=== PATIENT | male | born 2000 | race Caucasian/White ===

== ENCOUNTER 2025-05-22 16:01 | Outpatient (AMB) | payer OTHER, SELFPAY ==
--- NOTE | 2025-05-22 16:07 | A.OFFPC_ITS ---
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 Product Applications Scientist Required: No Accompanied by: Self / Same As Patient Allergies No Known Allergies Allergy (Verified 05/22/25 16:07) Tobacco use date assessed: 05/22/25 Dental Screening Dental Screen Date: 05/22/25 Did you have a dental visit in the last 12 months?: Yes Did you have a dental problem in the last 6 months where you did not have access to dental care?: No Was dental information given to patient?: Patient has dentist HPI HPI Comments History of Present Illness Details History of Present Illness The patient is a 25-year-old male presenting with a need for diabetes management and supplies. Diabetes Mellitus Type 1: - The patient has been managing Type 1 D iabetes Mellitus and requires G7s and Dexcom supplies for monitoring. - He uses an insulin pump and administer s 15 to 20 units of insulin at night, with a sliding scale during the day. - The patient has not had diabetes suppl ies for over a month due to a change in primary care providers. - He reports good control over his diabe kat for the past five to six years. Health Maintenance STI screen discussed patient refused Review of Systems - General: Denies smoking, rare alcohol consumption, denies drug use. - Endocrine: Reports good control of marian betes over the last five to six years. 10-point ROS reviewed and negative excep t as noted in HPI Past Medical History - Diabetes Mellitus Type 1, managed with insulin pump. Physical Exam General: Well-appearing, in no acute distress. Vital signs: Within normal limits. HEENT: Normocephalic, atraumatic. PERRLA, EOMI. Conjunctiva clear, sclera anicteric. Oropharynx clear, mucous membranes moist. TMs intact bilaterally. Neck: Supple, no lymphadenopathy, no thyromegaly, no JVD or carotid bruits. Cardiovascular: RRR, normal S1/S2, no murmurs, rubs, or gallops. Peripheral pulses 2+ and symmetric. No edema. Respiratory: Lungs clear to auscultation bilaterally, no wheezes, rales, or rhonchi. Normal effort. Abdomen: Soft, non-tender, non-distended. Normoactive bowel sounds. No hepatosplenomegaly, no masses. MSK: Full range of motion, no joint swelling or deformity. Normal gait. Skin: Warm, dry, intact. No rashes, lesions, or pallor. Neuro: Alert and oriented x3. Cranial nerves II-XII intact. Strength 5/5 throughout. Sensation intact. Reflexes 2+ symmetric. Normal coordination and gait. Psych: Appropriate mood and affect. Normal judgment and insight. Discussion Notes I discussed with the patient the need for baseline labs including CBC, CMP, lipid panel, TSH, and urine analysis. We also talked about the referral to an sheeter machine operator and the importance of maintaining diabetes supplies. The patient was informed about the STI screening and agreed to proceed. Follow-up was advised to review lab results and ensure continuity of care. Plan Diabetes type 1 - Order baseline labs including CBC, CMP , lipid panel, TSH, and urine analysis. - Provide a referral to an endocrinologi st for continued diabetes management. - Refill diabetes supplies including G7s and Dexcom. - Conduct STI screening as part of preve ntative care. Patient Instructions - Follow up with the sheeter machine operator as soon as possible for diabetes management. - Ensure diabetes supplies are refilled and available. - Complete the STI screening as discusse d. - Return for follow-up to discuss lab re sults and further management. [facility] Family History (Updated 05/22/25 @ 16:15 by Ladonna Hardin MA) Father Austin's like disease Mother No problems noted. Social History (Updated 05/22/25 @ 16:16 by Ladonna Hardin MA) Housing: Apartment Alcohol intake: current Alcohol intake frequency: holidays/special occasions only Patient Tobacco Use Status: Never used Tobacco service: No Current occupational status: employed Cognitive needs: No Hearing needs: No Vision needs: No Questionnaire PHQ-9 Over the last 2 weeks, how often have you been bothered by any of the following problems? 1. Little interest or pleasure in doing things: not at all 2. Feeling down, depressed, or hopeless: not at all 3. Trouble falling or staying asleep, or sleeping too much: not at all 4. Feeling tired or having little energy: several days 5. Poor appetite or overeating: several days 6. Feeling bad about yourself - or that you are a failure or have let yourself or your family down: not at all 7. Trouble concentrating on things, such as reading the newspaper or watching television: several days 8. Moving or speaking so slowly that other people could have noticed. Or the opposite - being so fidgety or restless that you have been moving around a lot more than usual: not at all 9. Thoughts that you would be better off or of hurting yourself in some way: not at all Total score: 3 Depression Screening Interpretation: Negative Depression Screening Done: Yes Source: Developed by Drs. Clarke Vela, Kathy Escobedo, Yoandy Juarez and colleagues, with an educational frederick from [employer]. Thrive Questionnaire Date Thrive assessed: 05/22/25 I am a: Patient What is your living situation today?: I have a steady place to live Within the past 12 months, did the food you bought not last and you didn't have the money to get more?: Never true Within the past 12 months, did you worry whether your food would run out before you got money to buy more?: Never true Do you have trouble paying for medicines?: Yes Do you have trouble getting transportation to medical appointments?: No Do you have trouble paying your heating and electricity bill?: Yes Do you have trouble taking care of your child, family member or friend?: No Are you currently unemployed and looking for a job?: No Are you interested in more education?: No Please select the resources that you would like help with: None Currently or been in a relationship where the following occur: No concerns reported THRIVE Score: 1 AUDIT C Alcohol Use Questionnaire (AUDIT-C) 1. How often do you have a drink containing alcohol?: 2-4 times a month 2. How many drinks containing alcohol do you have on a typical day when you are drinking?: 5 or 6 3. How often do you have six or more drinks on one occasion?: Less than monthly Total Score: 5 ZACHARY-7 AMB Questionnaire ZACHARY-7 Date ZACHARY - 7 assessed: 05/22/25 Feeling nervous, anxious, or on edge: 1 = Several days Not being able to stop or control worryin = Not at all Worrying too much about different things: 1 = Several days Trouble relaxin = Several days Being so restless that it is hard to sit still: 0 = Not at all Becoming easily annoyed or irritable: 0 = Not at all Feeling afraid as if something awful might happen: 0 = Not at all Total ZACHARY-7 score (0-4 normal; 5-9 mild; 10-14 moderate; 15-21 severe): 3 Source: Developed by Drs. Clarke Vela, Kathy Escobedo, Yoandy Juarez and colleagues, with an educational frederick from [employer]. Physical exam (Primary Care) Vital Signs: Last Vital Signs Temp 98 F 05/22/25 16:16 Pulse 89 05/22/25 16:16 Resp 16 05/22/25 16:16 BP 120/80 05/22/25 16:16 Pulse Ox 97 05/22/25 16:16 Oxygen Delivery Method Room Air 05/22/25 16:16 BMI result Body Mass Index 22.5 Tobacco/Smoking Status: Tobacco use Status Tobacco use date assessed 05/22/25 05/22/25 16:10 Patient Tobacco Use Status Never used Tobacco 05/22/25 16:16 PHQ-9: PHQ-9 Score PHQ-9: Total score 3 05/22/25 16:10 Depression Screening Interpretation: Negative Thrive Assessment: Date of Thrive Assessment Date Thrive assessed 05/22/25 05/22/25 16:10 Currently or been in a relationship where the following occur: No concerns reported Coding Level of Care Code New Pt Level 3 (48165) Diagnoses Establishing care with new doctor, encounter for Z76.89 Encounter for screening, unspecified Z13.9 Hypertension screen Z13.6 Screening for lipoid disorders Z13.220 Screening for depression Z13.31 Type 1 diabetes mellitus without complication, with terminal worker current use of insulin pump E10.9; Z96.41 Screening declined by patient Z53.20 Assessment & Plan Assessment & Plan (1) Establishing care with new doctor, encounter for: Code(s): Z76.89 - Persons encountering health services in other specified circumstances (2) Encounter for screening, unspecified: Code(s): Z13.9 - Encounter for screening, unspecified (3) Hypertension screen: Code(s): Z13.6 - Encounter for screening for cardiovascular disorders (4) Screening for lipoid disorders: Code(s): Z13.220 - Encounter for screening for lipoid disorders (5) Screening for depression: Code(s): Z13.31 - Encounter for screening for depression (6) Type 1 diabetes mellitus without complication, with correction current use of insulin pump: Code(s): E10.9 - Type 1 diabetes mellitus without complications; Z96.41 - Presence of insulin pump (external) (internal) (7) Screening declined by patient: Code(s): Z53.20 - Procedure and treatment not carried out because of patient's decision for unspecified reasons Plan Orders: Orders Complete Blood Count Auto Diff Today Z13.9 - Encounter for screening, unspecified, Z76.89 - Persons encountering health services in other specified circumstances Hemoglobin A1c Today Z13.9 - Encounter for screening, unspecified, Z76.89 - Persons encountering health services in other specified circumstances Hepatitis B Surface Antibody Today Z13.9 - Encounter for screening, unspecified, Z76.89 - Persons encountering health services in other specified circumstances Lipid Panel Today Z13.9 - Encounter for screening, unspecified, Z76.89 - Persons encountering health services in other specified circumstances Magnesium Today Z13.9 - Encounter for screening, unspecified, Z76.89 - Persons encountering health services in other specified circumstances Vitamin D 1,25 dihydroxy Today Z13.9 - Encounter for screening, unspecified, Z76.89 - Persons encountering health services in other specified circumstances UA CC w/rflx Micro + Cult Today Z13.9 - Encounter for screening, unspecified, Z76.89 - Persons encountering health services in other specified circumstances Comprehensive Met. Panel Today Z13.9 - Encounter for screening, unspecified, Z76.89 - Persons encountering health services in other specified circumstances Hepatitis B Surface Antigen Today Z13.9 - Encounter for screening, unspecified, Z76.89 - Persons encountering health services in other specified circumstances Hepatitis C Antibody Today Z13.9 - Encounter for screening, unspecified, Z76.89 - Persons encountering health services in other specified circumstances HIV Ab/Ag Today Z13.9 - Encounter for screening, unspecified, Z76.89 - Persons encountering health services in other specified circumstances Uric Acid Today Z13.9 - Encounter for screening, unspecified, Z76.89 - Persons encountering health services in other specified circumstances Vitamin B12 and Folate Today Z13.9 - Encounter for screening, unspecified, Z76.89 - Persons encountering health services in other specified circumstances TSH reflex Free T4 Today Z13.9 - Encounter for screening, unspecified, Z76.89 - Persons encountering health services in other specified circumstances Microalbumin, Random (w Creat) Today Z13.9 - Encounter for screening, unspecified, Z76.89 - Persons encountering health services in other specified circumstances Referrals Endocrinology Referral E10.8 - Type 1 diabetes mellitus with unspecified complications, E10.9 - Type 1 diabetes mellitus without complications, Z13.9 - Encounter for screening, unspecified, Z76.89 - Persons encountering health services in other specified circumstances, Z96.41 - Presence of insulin pump (external) (internal)
[2025-05-22 16:16] VITALS: BP 120/80; PULSE 89; RESP 16; TEMP 36.6; O2SAT 97; BMI 22.5
--- OUTSIDE RECORDS SUMMARY | 2025-05-22 17:09 | XMS_ITS | Clinical Summary ---
Author Organization [facility] Address [address] [place] [id number] Phone Care Team Providers Care Eligibility Specialist Name Role Phone Unavailable Primary Care Provider Unavailabl e Allergies Active Allergy Reactions Criticality Noted Date Comments Environmental 07/09/2018 Ragweed Medications HUMALOG 100 UNIT/ML injection 8 Active BASAGLAR KWIKPEN 100 UNIT/ML solution pen-injector INJECT UP TO A MAX OF 20 UNITS PER DAY FOR PUMP FAILURE 5 9 Active cetirizine 10 MG tabletIndicatio ns:Allergic rhinitis Take 1 tab po daily 100 tablet 9 Active fluticasone 50 MCG/ACT nasal sprayIndication s:Allergic rhinitis Administer 1 spray into each nostril daily. 1 Units 2 9 Active sucralfate 1 g tablet TAKE 1 TABLET BY MOUTH THREE TIMES DAILY BEFORE MEALS AND AT BEDTIME 1 Active famotidine 20 MG tablet Take 20 mg by mouth once daily. 1 Active Tresiba FlexTouch 100 UNIT/ML solution pen-injector 2 Active Insulin Lispro 100 UNIT/ML solution 2 Active Nirmatrelvir & Ritonavir (Paxlovid) 20 x 150 MG & 10 x 100MG tablet therapy packIndications :SARS-CoV-2 positive Nirmatrelvir 300 mg with ritonavir 100 mg, administered together by mouth, twice daily for 5 days. 1 each 2 Active Insulin Syringe-Needle U-100 (B-D INSULIN SYRINGE 1CC/25G) 25G X 5/8 1 ML misc 0.5 ML 8MMX3 31G X 5/16 2 Active BD Pen Needle Neris U/F 32G X 4 MM misc 3 Active FREESTYLE LITE test strip 3 Active Dexcom G6 Transmitter misc 3 Active Dexcom G6 Sensor misc 3 Active B-D SINGLE USE SWABS REGULAR pads 3 Active freestyle lancets 2 Active Active Problems Problem Noted Date Diagnosed Date Sebaceous cyst 01/06/2023 Assessment & Plan (01/06/2023 10:55 AM EDT): Normal growth, small pea sized Color blindness 01/06/2023 Assessment & Plan (01/06/2023 11:07 AM EDT): I have shown him a color blindness test, he got 50% right, but inconsistent. Suggest go to eye doctor for exam, also for possible glasses. Autoimmune thyroiditis 12/30/2022 Refused influenza vaccine 11/02/2020 Overview (11/02/2020): 11/02/2020 By patient Otisf toe 07/12/2019 Assessment & Plan (12/16/2021 2:42 PM EDT): Given handout on this. Assessment & Plan (07/12/2019 10:43 AM EST): Persistent left great toe irritation particularly with extension of toe. Previously x-rayed and no fracture noted. This irritation settled with rest for a week previously but has come back up. He has had it taped regularly without much help. Plan to rest this for a week with icing it daily. Continue to tape as needed. Type I diabetes mellitus 07/07/2017 Overview (09/18/2020): Type I diabetes (250.01) Onset: 07/07/2017 Added by: Ashok Kulkarni Followed by [facility]. 07/2018 A1c 10.1. 08/2018 A1c 10.1. 10/2018 A1c 10.2. Insulin pump basal and bolus. CGM intermittent use. Not testing regularly. 10/30/2019 - A1c 9.1%. Insulin pump. Looking at dexcom and Tandem pump. 03/18/2020 - Frances Johnson MD. A1c 9.6%. Try to bolus for all foods. Follow up in 2 months. 09/03/2020 - Frances Johnson MD. A1c 9.6%. Tandem pump set up. Dexcom. Assessment & Plan (12/16/2021 2:53 PM EDT): Patient reports last A1c in the 7-8% range. This is better than previously. Patient has been taking ownership of his diabetes management and caring for his body. Assessment & Plan (09/18/2020 1:11 PM EST): DOS: 09/03/2020 Provider: Frances Johnson MD Dx: T1DM HbA1C 9.6% February 2020 -Setup Tandem Pump training with the [employer] systems trainer --Help set u Dexcom Sensor G6 sensor --If possible will get new Tandem Pump as this has to be charged q 3 hours --Will upgrade to JAZIO technology one pump setup -f/u in 2 months Assessment & Plan (03/30/2020 9:31 AM EDT): DOS: 03/18/2020 Provider: Frances Johnson MD Dx: T1DM HbA1C 9.6% -Continue same insulin regimen -Check BG 3x daily and bolus until dexcom sensor is available -try to bolus for all foods -f/u in 2 months Assessment & Plan (11/21/2018 12:33 PM EDT): Regular blood sugars reported. No concern for high ketones currently. Assessment & Plan (07/09/2018 10:16 AM EST): Last A1c 10.8. Struggling with checking blood sugars and staying on top of giving insulin. Resolved Problems Problem Noted Date Diagnosed Date Resolved Date Abdominal pain 12/30/2022 01/06/2023 Weight loss 12/30/2022 01/06/2023 Hearing difficulty of left ear 02/22/2022 01/06/2023 Assessment & Plan (02/22/2022 6:48 AM EDT): Cerumen removed from ear canal without much effect on hearing. Most likely congestion related pressure on the TM and muffling of hearing. Continue with cetirizine and flonase. Discussed neti pot use. Epigastric pain 12/01/2021 01/06/2023 Assessment & Plan (12/16/2021 2:43 PM EDT): Pain has improved with use of famotidine, omeprazole and sucralfate. Continue with these for a few weeks and then transition off of this. Assessment & Plan (12/01/2021 8:43 PM EDT): History and physical concerning for recurrent reflux issues. The vomiting and diarrhea very recently would be consistent with a viral GI illness that we have seen in the clinic. The longer history of GI distress is concerning and so will obtain lab work to screen for inflammatory bowel diseases as well as for gallbladder or pancreatic dysfunction (other than diabetes). If these are normal discussed use of famotidine, omeprazole and sucralfate as he has previously used for the next week. Considering GI referral pending lab results. Refused influenza vaccine 07/12/2019 Assessment & Plan (07/12/2019 10:44 AM EST): Reviewed importance of vaccination and risks of disease. Parent/patient declined vaccine. Strain of back 11/21/2018 11/02/2020 Assessment & Plan (07/12/2019 10:41 AM EST): Exam and history consistent with back strain. Recommending stretching and strengthening exercises daily for two weeks. If persistent would refer to PT. Assessment & Plan (11/21/2018 11:39 PM EDT): James states that mid-back pain has been going on for about a year. There was no specific injury when this started up. No bony tenderness to suggest a bone problem. Localized to paraspinal muscle group. Discussed use of stretching and strengthening exercises. If this does not improve with these things then will refer to physical therapy. Concussion with brief loss of consciousness 06/04/2018 07/09/2018 Scoliosis (and kyphoscoliosis), idiopathic 11/07/2017 12/16/2021 Overview (12/30/2022): Scoliosis (737.30) Onset: 11/07/2017 Added by: King Pascal Diagnosis load December 2022 Assessment & Plan (07/09/2018 10:16 AM EST): Mild scoliosis on exam in lumbar area. Adjustment disorder with mix ed anxiety and depressed mood 07/07/2011 01/06/2023 Immunizations Immunization Administration Dates Next Due DTaP / HiB 12/08/2003 DTaP 5 05/25/2007, 3,2002, 002 HPV Vaccine 9 Valent 05/20/2019,01/09/2019,07/09 Hep A, ped/adol 01/09/2019,07/09/2018 Hep B, ped/adol 09/25/2003,2002,2002 Hib (PRP-T) 2002,2002,2002 IPV 05/25/2007, 4,2002, 002 MMR 05/08/2003 MMRV 05/25/2007 Meningococcal Conj (Menactra) MCV4P 07/09/2018,1 10/21/2012 Pneumococcal Conjugate 09/25/2003,2002,2002, 002 Tdap 08/20/2013 Varicella 05/08/2003 Family History Medical History Relation Name Comments No Known Problems Brother Julien No Known Problems Father ashok No Known Problems Mother yenni Relation Name Status Comments Brother Julien Alive Father ashok Alive Mother yenni Alive Social History Tobacco Use Types Packs/Day Years Used Date Smoking Tobacco: Never Smokeless Tobacco: Never Comments:Never Smoker Alcohol Use Standard Drinks/Week Comments No 0 (1 standard drink = 0.6 oz pur e alcohol) Hunger/Food Answer Date Recorded In the last 12 months, did y ou or your family ever eat less than you felt you should because there wasn't enough money for food? No 01/06/2023 Stable Housing Answer Date Recorded Are you worried that in the next 2 months you may not have stable housing? No 01/06/2023 Transportation Concerns Answer Date Rec orded In the last 12 months, have you or your family ever had to go without healthcare because you didn't have a way to get there? No 01/06/2023 Hazards in Home Answer Date Recorded Think about the place you li ve. Do you have problems with any of the following? Pests (mice or roaches), mold, no/not working smoke detectors, water leaks, no window guards. No 2022 Financing Utilities Answer Date Recorde d In the last 12 months, has t he electric, gas, oil, or water company threatened to shut off your services in your home? No 01/06/2023 Safety at Home Answer Date Recorded Are you or your family worried about feeling saf e in your home? No 01/06/2023 Outside Support Answer Date Recorded Do you feel that you need mo re support from other people or programs to help you care for yourself or your family? No 01/06/2023 Understanding Health Concerns Answer Da te Recorded Do you need help understandi ng your or your child's healthcare needs (diagnosis, medications, plan, etc.)? No 01/06/2023 Financing Health Concerns Answer Date R ecorded In the last 12 months, was t here a time when your child needed to see a doctor or get medications or supplies but could not because of cost? No 01/06/2023 Missing School or Work Answer Date Mat rded Did you or your child miss s chool or work because of a health problem that could have been avoided? No 01/06/2023 Sex and Gender Information Value Date Recorded Sex Assigned at Male 07/12/2019 10:38 AM EST Legal Sex Male 6:32 PM EDT Gender Identity Male 07/12/2019 10:38 AM EST Sexual Orientation Straight 07/12/2019 10 :38 AM EST Last Filed Vital Signs Vital Sign Reading Time Taken Comments Blood Pressure 104/80 01/06/2023 10:35 AM EDT Pulse 95 01/06/2023 10:35 AM EDT Temperature 36.4 C (97.6 F) 01/06/2023 10:35 AM EDT Respiratory Rate - - Oxygen Saturation - - Inhaled Oxygen Concentration - - Weight 77.7 kg (171 lb 4.8 oz) 01/06/2023 10:35 AM EDT Height 179 cm (5' 10.47 ) 01/06/2023 10:35 AM ED T Body Mass Index 24.25 01/06/2023 10:35 AM EDT Plan of Treatment Health Maintenance Due Date Last Done Comments HIV Screening 2002 Syphilis Screening (consider for higher risk patients) 2002 Men B Vaccine (1 of 2 - Standard) 2018 DTaP,Tdap,and Td Vaccines (7 - Td or Tdap) 08/20/2023 08/20/2013, 05/25/2007, 12/08/2003, Additional history exists Influenza Vaccines (#1) 2025 COVID-19 Vaccine (2023-2 5 season) 2025 Hepatitis B Vaccines Completed 09/25/2003, 2002, 2002 Pneumococcal Vaccine Completed 09/25/2003, 2002, 2002, Additional history exists HIB Vaccines Completed 12/08/2003, 11/2002, 2002, Additional history exists IPV Vaccines Completed 05/25/2007, 01/2004, 2002, Additional history exists MMR Vaccines Completed 05/25/2007, 05/08/2003 Varicella Vaccines Completed 05/25/2007, 05/08/2003 Meningococcal Vaccine Completed 07/09/2018, 013 Hepatitis A Vaccines Completed 01/09/2019, 07/09/20 18 HPV Vaccines Completed 05/20/2019, 04/2019, 07/09/2018 Procedures * Due to [place] [employer] law, this organization might not be sharing sensitive test results. Procedure Name Priority Date/Time Associated Diagnosis Comments CHLAMYDIA AND GONORRHEA, AMPLIFIED Routine 12/16/2021 2:17 PM EDT Encounter for screening examination for sexually transmitted disease from Last 3 Months or Most Recently Relevant to Health Maintenance Results * Due to [place] [employer] law, this organization might not be sharing sensitive test results. * Chlamydia and Gonorrhoea, Amplified (12/16/2021 2:17 PM EDT) Chlamydia Trachomatis, DNA Probe NEGATIVE (NEG) [facility] Comment: No Chlamydia Trachomatis RNA detected in this patient's sample (REFERENCE RANGE/NORMAL VALUE: NOT DETECTED) Note: This test uses animal biologist- mediated amplification method to detect rRNA from C. Trachomatis URINE GC AMP PROBE NEGATIVE (NEG) [facility] Comment: No Neisseria Gonorrhoeae RNA detected in this patient's sample (REFERENCE RANGE/NORMAL VALUE: NOT DETECTED) NOTE: This test uses animal biologist-mediated amplification method to detect rRNA from N.Gonorrhoeae. A negative result does not preclude infection. In the case of a negative urine result, testing of an endocervical(female) or urethral (male) specimen is recommended if there is high clinical suspicion of infection. Due to very high sensitivity of Nucleic Acid Amplification Test, false positive results may occur. Therefore, specimen handling is extremely important. In patients in whom the disease is unlikely, additional sample for testing should be considered after an initial positive result. The performance characteristics of this test have not been evaluated in children. The Aptima Combo2 assay is not intended for the evaluation of suspected sexual abuse or for other medico-legal indications. The ordering provider should assess if the patient had consensual sex without risk of sexual abuse. Consult the [facility] if needed. Contact phone number . Therapeutic failure or success cannot be determined with the Aptima Combo2 assay since nucleic acid may persist following appropriate antimicrobial therapy. The Centers for Disease Control and Prevention (CDC) recommends confirmatory retesting using culture or a different nucleic acid amplification test when positive results occur, if indicated. Testing performed or reported by [facility], a Service of [facility], [address] [facility] [facility] [place] [address] Yony Stallworth MD, Media/Instructional Designer [facility]# [id number] Urine (Urine) 12/16/2021 2:1 7 PM EDT 12/16/2021 8:28 PM EDT us King Pascal MD LAB MICROBIOLOGY - GENERAL O RDERABLES Final Result [facility] from Last 3 Months or Most Recently Relevant to Health Maintenance
--- OUTSIDE RECORDS SUMMARY | 2025-05-22 17:09 | XMS_ITS | Encounter Summary ---
Author Organization [facility] Address [address] [place] [phone] Phone Care Team Providers Care Car Escort Name Role Phone Ashok Kulkarni MD Primary Care Provider [phone] Encounter Details Date Type Department Care Team (Late st Contact Info) Description 01/17/2011 Conversion Encounter [facility] [address] [place] [address] Social History Tobacco Use Types Packs/Day Years Used Date Smoking Tobacco: Never Assessed Sex and Gender Information Value Date Recorded Sex Assigned at Male 07/12/2019 10:38 AM EST Legal Sex Male 6:32 PM EDT Gender Identity Male 07/12/2019 10:38 AM EST Sexual Orientation Straight 07/12/2019 10 :38 AM EST documented as of this encounter Plan of Treatment Not on file documented as of this encounter Visit Diagnoses Not on filedocumented in this encounter Care Teams Car Escort Relationship Specialty Start Date End Date Ashok Kulkarni MD [address] [place] [address] PCP - General 01/10/18 01/19/25 documented as of this encounter
--- OUTSIDE RECORDS SUMMARY | 2025-05-22 17:09 | XMS_ITS | Clinical Summary ---
Author Organization [address] Address [address] [place] [phone] Phone Care Team Providers Care Supervising Broker Name Role Phone Unavailable Primary Care Provider Unavailabl e Social History Tobacco Use Types Packs/Day Years Used Date Smoking Tobacco: Never Assessed Sex and Gender Information Value Date Recorded Sex Assigned at Not on file Legal Sex Male 11:18 PM EST Gender Identity Not on file Sexual Orientation Not on file Plan of Treatment Health Maintenance Due Date Last Done Comments HPV Vaccines (1 - Male 3-dos e series) 2017 Meningococcal B Vaccine (1 o f 2 - Standard) 2018 DTaP,Tdap,and Td Vaccines (1 - Tdap) 2021 Hepatitis B Vaccines (1 of 3 - 19+ 3-dose series) 2021 Depression Screening 09/04/2024 HIV Screening 05/01/2025 Hepatitis C Screening 05/01/2025 Social Influencers of Health Screening 05/01/2025 COVID-19 Vaccine (1 - 2023-2 5 season) 2025 Influenza Vaccine (#1) 2025 HIB Vaccines Aged Out No longer eligi ble based on patient's age to complete this topic Hepatitis A Vaccines Aged Out No long er eligible based on patient's age to complete this topic IPV Vaccines Aged Out No longer eligi ble based on patient's age to complete this topic MMR Vaccines Aged Out No longer eligi ble based on patient's age to complete this topic Meningococcal ACWY Vaccine Aged Out N o longer eligible based on patient's age to complete this topic Pneumococcal Vaccine: Pediat rics (0 to 5 Years) and At-Risk Patients (6 to 49 Years) Aged Out No longer eligible b ased on patient's age to complete this topic RSV Immunization Patients Un joshua 20 months Aged Out No longer eligible b ased on patient's age to complete this topic Varicella Vaccines Aged Out No longer eligible based on patient's age to complete this topic Insurance [facility]
== END 2025-05-22 16:32 | disposition home or self-care (01) ==
LOC: HO.HMCFMS 16:02
PROVIDERS: PCP Student in an Organized Health Care Education/Training Program; Visit Provider Student in an Organized Health Care Education/Training Program
DX: E10.9 Type 1 diabetes mellitus without complications (principal); Z96.41 Presence of insulin pump (external) (internal)

== ENCOUNTER 2025-06-16 14:24 | Outpatient (REF) | payer OTHER, SELFPAY ==
[2025-06-16 17:29] LABS: MANUAL DIFF FLAG NO
[2025-06-16 17:36] LABS: Hematocrit 44.0 % (42.0-52.0); Hemoglobin 15.2 g/dl (14.0-18.0); Imm Gran Abs Auto 0.01 X10*3/uL (0.00-0.03); Imm Gran Pct Auto 0.2 % (0.0-0.4); Lymphocytes Absolute Auto 1.4 X10*3/uL (1.2-4.9); Mean Corpuscular HGB Conc 34.5 g/dl (31.0-36.0); Mean Corpuscular Hemoglobin 29.9 pg (27.0-33.0); Mean Corpuscular Volume 86.6 fL (80.0-98.0); NRBC Abs Auto 0.000 X10*3/uL (0.0-0.012); NRBC Pct Auto 0.0 /100WBC (0.0-0.2); Platelet Count 240 X10*3/uL (160-400); Red Blood Count 5.08 X10*6/uL (4.60-5.80); White Blood Count 5.2 X10*3/uL (4.8-10.8)
[2025-06-16 17:47] LABS: Appearance Urine Clear; Glucose Urine UA >=1000 mg/dL (Negative); PH 7.5 (5.0-9.0); Specific Gravity - Urine >= 1.030 (1.005-1.025); UMIC TRIGGER UACC YES
[2025-06-16 17:56] LABS: Alanine Aminotransferase 20 U/L (0-40); Albumin Level 4.7 g/dL (3.5-5.0); Alkaline Phosphatase 83 U/L (39-117); Anion Gap 12 (12-20); Aspartate Amino Transferase 38 U/L (5-37); Blood Urea Nitrogen 12 mg/dL (9-16); Calcium 9.1 mg/dL (8.4-10.2); Carbon Dioxide 30 mmol/L (22-29); Chloride 101 mmol/L (96-108); Cholesterol 150 mg/dL (<200); Estimated Glomerular Filt Rate > 60; HDL Cholesterol 50 mg/dL (>40); Magnesium 1.9 mg/dL (1.6-2.6); Potassium 4.7 mmol/L (3.3-5.1); Sodium 138 mmol/L (135-145); Total Protein 6.7 g/dL (6.5-8.0); Triglycerides 219 mg/dL (<150); Uric Acid 4.1 mg/dL (3.4-7.0)
[2025-06-16 18:19] LABS: Folate 8.2 ng/mL (> or = 4.0); Vitamin B12 525 pg/mL (200-900)
[2025-06-17 04:43] LABS: HBS Num1 1.19 mIU/mL (0-7.99); HBsAGNum1 0.41 S/CO (0.00-0.99); HIV Num 1 0.12 S/CO (0.00-0.99); Hepatitis B Surface Antigen Negative (Negative); ~HepC Num1 0.09 S/CO (0.00-0.79); ~Hepatitis B Surface Antibody NONREACTIVE (Nonreactive); ~Hepatitis C Antibody Nonreactive (Nonreactive)
[2025-06-21 00:38] LABS: VITAMIN D (1,25 OH) D3 28 pg/mL; Vit D (1,25-Dihydroxy) Total 28 pg/mL (18-72); Vitamin D (1,25 OH) D2 <8 pg/mL
== END 2025-06-16 14:25 | disposition home or self-care (01) ==
LOC: HO.HKASLDS 14:24
PROVIDERS: PCP Student in an Organized Health Care Education/Training Program; Visit Provider Student in an Organized Health Care Education/Training Program
DX: Z13.89 Encounter for screening for other disorder (principal); Z76.89 Persons encountering health services in other specified circumstances; Z13.1 Encounter for screening for diabetes mellitus; Z13.6 Encounter for screening for cardiovascular disorders; Z13.29 Encounter for screening for other suspected endocrine disorder; Z13.21 Encounter for screening for nutritional disorder; Z11.4 Encounter for screening for human immunodeficiency virus [HIV]; Z11.59 Encounter for screening for other viral diseases
CPT/HCPCS: 36415; 80053; 80061; 81001; 82570; 82607; 82652; 82746; 83036; 83735; 84443; 84550; 85025; 86706; 86803; 87340; 87389

== ENCOUNTER 2025-06-27 15:51 | Outpatient (AMB) | payer OTHER, SELFPAY ==
[2025-06-27 15:54] VITALS: BP 127/81; PULSE 96; RESP 16; TEMP 36.8; O2SAT 96; BMI 23.1
--- NOTE | 2025-06-27 15:54 | MHC.PC.OV ---
Vital Signs 06/27/25 15:54 Height 5 ft 10.08 in Weight 161 lb 2 oz BMI 23.1 BP 127/81 Blood Pressure Location Rt brachial Position Sitting Respiration 16 Pulse 96 Pulse Source Pulse Oximeter Temp 98.3 F Temp Source Oral Pulse Oximetry (%) 96 Oxygen Delivery Method Room Air Intake Visit Reasons: follow up labs, rescheduled from 06/16 Intake Note: diabetes type 1 needs referral for antisubmarine weapons officer. Medical Physicist Required: No Accompanied by: Self / Same As Patient Allergies No Known Allergies Allergy (Verified 06/27/25 15:55) Tobacco use date assessed: 06/27/25 Dental Screening Dental Screen Date: 06/27/25 Did you have a dental visit in the last 12 months?: Yes Did you have a dental problem in the last 6 months where you did not have access to dental care?: No Was dental information given to patient?: Patient has dentist HPI HPI Comments History of Present Illness Details History of Present Illness The patient is a 25-year-old male presenting with follow-up on lab results and management of Type 1 Diabetes Mellitus. Type 1 Diabetes Mellitus: The patient has a history of Type 1 Diabetes Mellitus and is currently using a DexMeet.com glucose monitoring device and insulin pump for management. The patient's hemoglobin A1c is elevated at 11.1%, and random glucose levels have been recorded at 450 mg/dL, indicating poor glycemic control. The patient has not yet seen an antisubmarine weapons officer despite a referral being placed, and there is a need for adjustment of insulin dosage and carbohydrate counting. Peripheral neuropathy: The patient reports numbness in the fingers following a cut, with no sensation in the affected area for several days, suggesting possible peripheral neuropathy. The patient has experienced similar symptoms in the past, indicating a recurring issue. Medications: - Insulin: For management of Type 1 Diabetes Mellitus, dosage programmed in pump. 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 Diagnostic Results: - Labs: Hemoglobin A1c 11.1%, random glucose 450 mg/dL, triglycerides 219 mg/dL, cholesterol 150 mg/dL, LDL 57 mg/dL, vitamin B12 525 pg/mL, vitamin D normal, folate normal, thyroid function normal. Past Medical History - Type 1 Diabetes Mellitus Health Maintenance - Referral to endocrinology for diabetes management. [facility] Family History (Updated 05/22/25 @ 16:15 by Ladonna Hardin MA) Father [place]'s like disease Mother No problems noted. Social History (Updated 05/22/25 @ 16:16 by Ladonna Hardin MA) Housing: Apartment Alcohol intake: current Alcohol intake frequency: holidays/special occasions only Patient Tobacco Use Status: Never used Tobacco service: No Current occupational status: employed Cognitive needs: No Hearing needs: No Vision needs: No Questionnaire Thrive Questionnaire Date Thrive assessed: 05/22/25 I am a: Patient What is your living situation today?: I have a steady place to live Within the past 12 months, did the food you bought not last and you didn't have the money to get more?: Never true Within the past 12 months, did you worry whether your food would run out before you got money to buy more?: Never true Do you have trouble paying for medicines?: Yes Do you have trouble getting transportation to medical appointments?: No Do you have trouble paying your heating and electricity bill?: Yes Do you have trouble taking care of your child, family member or friend?: No Are you currently unemployed and looking for a job?: No Are you interested in more education?: No Please select the resources that you would like help with: None Currently or been in a relationship where the following occur: No concerns reported THRIVE Score: 1 ZACHARY-7 AMB Questionnaire ZACHARY-7 Date ZACHARY - 7 assessed: 05/22/25 Source: Developed by Drs. Clarke Vela, Kathy Escobedo, Yoandy Juarez and colleagues, with an educational frederick from [employer]. Review of Systems Narrative Review of Systems - Neurological: Reports numbness in fingers following a cut, denies other neurological symptoms. 10-point ROS reviewed and negative except as noted in HPI Physical exam (Primary Care) Vital Signs: Last Vital Signs Temp 98.3 F 06/27/25 15:54 Pulse 96 06/27/25 15:54 Resp 16 06/27/25 15:54 BP 127/81 06/27/25 15:54 Pulse Ox 96 06/27/25 15:54 Oxygen Delivery Method Room Air 06/27/25 15:54 BMI result Body Mass Index 23.1 Tobacco/Smoking Status: Tobacco use Status Tobacco use date assessed 06/27/25 06/27/25 16:00 Patient Tobacco Use Status Never used Tobacco 06/27/25 16:00 Thrive Assessment: Date of Thrive Assessment Date Thrive assessed 05/22/25 06/27/25 16:00 Currently or been in a relationship where the following occur: No concerns reported Narrative Physical Exam General: Well-appearing, in no acute distress. Vital signs: Within normal limits. HEENT: Normocephalic, atraumatic. PERRLA, EOMI. Conjunctiva clear, sclera anicteric. Oropharynx clear, mucous membranes moist. TMs intact bilaterally. Neck: Supple, no lymphadenopathy, no thyromegaly, no JVD or carotid bruits. Cardiovascular: RRR, normal S1/S2, no murmurs, rubs, or gallops. Peripheral pulses 2+ and symmetric. No edema. Respiratory: Lungs clear to auscultation bilaterally, no wheezes, rales, or rhonchi. Normal effort. Abdomen: Soft, non-tender, non-distended. Normoactive bowel sounds. No hepatosplenomegaly, no masses. MSK: Full range of motion, no joint swelling or deformity. Normal gait. Skin: Warm, dry, intact. No rashes, lesions, or pallor. Cut on finger with no signs of infection, healing well, but with localized numbness. Neuro: Alert and oriented x3. Cranial nerves II-XII intact. Strength 5/5 throughout. Sensation intact except for localized numbness on the finger. Reflexes 2+ symmetric. Normal coordination and gait. Psych: Appropriate mood and affect. Normal judgment and insight. Coding Level of Care Code Est Pt Level 4 (12880) Diagnoses Type 1 diabetes mellitus E10.9 Peripheral nerve injury T14.8XXA Hypertriglyceridemia E78.1 Assessment & Plan Assessment & Plan (1) Type 1 diabetes mellitus: Code(s): E10.9 - Type 1 diabetes mellitus without complications (2) Peripheral nerve injury: Code(s): T14.8XXA - Other injury of unspecified body region, initial encounter (3) Hypertriglyceridemia: Code(s): E78.1 - Pure hyperglyceridemia Plan Consent Patient was informed and verbally consented to the use of an ambient scribe for clinic note documentation during this visit. Plan 1. Type 1 Diabetes Mellitus - Plan to follow up with endocrinology for insulin dosage adjustment and carbohydrate counting education. - Continue monitoring blood glucose levels with Dexcom device. 2. Peripheral Neuropathy - Monitor for changes in sensation and healing of the affected area. - Advise on careful monitoring due to slower healing rates associated with diabetes. 3. Hypertriglyceridemia RD referral lifestyle modifications discussed Discussion Notes I discussed with the patient the importance of managing Type 1 Diabetes Mellitus, emphasizing the need for endocrinology consultation to adjust insulin therapy and improve glycemic control. We also reviewed the lab results, noting the elevated A1c and glucose levels, and discussed the implications for long-term health. Patient Instructions - Schedule an appointment with endocrinology for diabetes management. - Continue using the Dexcom device to monitor blood glucose levels. - Monitor the cut on the finger for changes in sensation or signs of infection. Medical Decision Making The patient's elevated A1c and glucose levels indicate poor glycemic control, necessitating endocrinology referral for insulin adjustment and carbohydrate counting education. Peripheral neuropathy symptoms require monitoring due to the patient's diabetes, with emphasis on careful wound care to prevent complications. Total time spent caring for the patient today was 30 minutes. This includes time spent before the visit reviewing the chart, time spent documenting, and time spent reviewing laboratory results, diagnostic imaging, medications, performing a medically necessary evaluation, counseling on diagnoses, care coordination. Orders: Referrals Nurse Navigator Referral E10.9 - Type 1 diabetes mellitus without complications, E78.1 - Pure hyperglyceridemia Endocrinology Referral E10.9 - Type 1 diabetes mellitus without complications, Z96.41 - Presence of insulin pump (external) (internal)
--- OUTSIDE RECORDS SUMMARY | 2025-06-27 17:05 | XMS_ITS | Encounter Summary ---
Author Organization [facility] Address [address] [place] [phone] Phone Care Team Providers Care Yard Switcher Name Role Phone Ashok Kulkarni MD Primary Care Provider Encounter Details Date Type Department Care Team (Late st Contact Info) Description 01/17/2011 Conversion Encounter [facility] [address] [place] [id number] Social History Tobacco Use Types Packs/Day Years [...] on filedocumented in this encounter Care Teams Yard Switcher Relationship Specialty Start Date End Date Ashok Kulkarni MD [address] [place] [id number] PCP - General 01/10/18 01/19/25 documented as of this encounter
--- OUTSIDE RECORDS SUMMARY | 2025-06-27 17:05 | XMS_ITS | Clinical Summary ---
Author Organization [facility] Address [address] [place] [phone] Phone Care Team Providers Care Lead Process Engineer Name Role Phone Unavailable Primary Care Provider [...] 07/07/2017 Added by: Ashok Kulkarni Followed by [facility]. 07/2018 A1c 10.1. 08/2018 A1c [...] 2020 -Setup Tandem Pump training with the [employer] seeing eye dog trainer --Help set u Dexcom Sensor G6 sensor --If possible will get new Tandem Pump as this has to be charged q 3 hours --Will upgrade to [employer] technology one pump setup -f/u in 2 [...] exists Influenza Vaccines (#1) 2025 COVID-19 Vaccine (2024-2 6 season) 2025 Hepatitis B Vaccines Completed 09/25/2003, [...] 05/20/2019, 04/2019, 07/09/2018 Procedures * Due to [place] Direct Access Software law, this organization might not be sharing sensitive test results. Procedure Name Priority Date/Time Associated Diagnosis Comments CHLAMYDIA AND GONORRHEA, AMPLIFIED Routine 12/16/2021 2:17 PM EDT Encounter for screening examination for sexually transmitted disease from Last 3 Months or Most Recently Relevant to Health Maintenance Results * Due to [place] Direct Access Software law, this organization might not be sharing sensitive test results. * Chlamydia and Gonorrhoea, Amplified (12/16/2021 2:17 PM EDT) Chlamydia Trachomatis, DNA Probe NEGATIVE (NEG) [facility] Comment: No Chlamydia Trachomatis RNA detected in this patient's sample (REFERENCE RANGE/NORMAL VALUE: NOT DETECTED) Note: This test uses director video- mediated amplification method to detect rRNA from C. Trachomatis URINE GC AMP PROBE NEGATIVE (NEG) [facility] Comment: No Neisseria Gonorrhoeae RNA detected in this patient's sample (REFERENCE RANGE/NORMAL VALUE: NOT DETECTED) NOTE: This test uses director video-mediated amplification method to detect rRNA from N.Gonorrhoeae. [...] without risk of sexual abuse. Consult the [facility] if needed. Contact phone number . Therapeutic failure or success cannot be determined with the Aptima Combo2 assay since nucleic acid may persist following appropriate antimicrobial therapy. The Centers for Disease Control and Prevention (CDC) recommends confirmatory retesting using culture or a different nucleic acid amplification test when positive results occur, if indicated. Testing performed or reported by [facility], a Service of [facility], [address] [place] [address] Yony Stallworth MD, Senior Software Qa Analyst [facility]# [id number] Urine (Urine) 12/16/2021 2:1 7 PM EDT 12/16/2021 8:28 PM EDT us King Pascal MD LAB MICROBIOLOGY - GENERAL O RDERABLES Final Result [facility] from Last 3 Months or Most Recently Relevant to Health Maintenance
--- OUTSIDE RECORDS SUMMARY | 2025-06-27 17:05 | XMS_ITS | Clinical Summary ---
Author Organization [address] Address [address] [place] [phone] Phone Care Team Providers Care Teamcenter Consultant Name Role Phone Unavailable Primary Care Provider [...] 5 season) 2025 Influenza Vaccine (#1) 2025 RSV Immunization Adult Patie nts (1 - 1-dose 75+ series) 2077 HIB Vaccines Aged Out No longer eligi [...]
== END 2025-06-27 16:15 | disposition home or self-care (01) ==
LOC: HO.HMCFMS 15:52
PROVIDERS: PCP Student in an Organized Health Care Education/Training Program; Visit Provider Student in an Organized Health Care Education/Training Program
DX: E10.9 Type 1 diabetes mellitus without complications (principal); T14.8XXA Other injury of unspecified body region, initial encounter; E78.1 Pure hyperglyceridemia